=== PATIENT | female | born 1945 | race Caucasian/White ===

== ENCOUNTER 2019-05-23 07:48 | Outpatient (CLI) | payer MEDICARE, SELFPAY ==
--- NOTE | ~2019-05-23 | MR_ITS ---
EXAMINATION: MR brain/brain stem wo/w con EXAM DATE: 05/23/2019 08:58 INDICATION: Cerebellar pilocytic astrocytoma. TECHNIQUE: Magnetic resonance imaging (MRI) of the brain/brain stem obtained without contrast. Sagit juliano T1, axial diffusion, gradient echo (T2*), T1, T2, FLAIR sequences obtained. Patient was then inj ected with 20 cc intravenous Multihance contrast. Axial and coronal postcontrast T1 weighted sequence s obtained. There is no prior study for comparison. FINDINGS: There are surgical changes from right suboccipital craniotomy. There is small amount of rig ht cerebellar encephalomalacia. No evidence of local recurrence. There are no areas of restricted dif fusion to suggest acute infarction. There is no acute hemorrhage seen on the T2*, a hemosiderin sens itive sequence. No intraparenchymal brain mass lesion. There is mild periventricular and subcortical T2/FLAIR signal hyperintensity, nonspecific but probably related to small vessel ischemic disease (m icroangiopathy). There is mild prominence of the sulci and ventricles related to cerebral atrophy. There are no extra-axial collections. Flow voids are seen in the cerebral arteries on the T2-weigh nicole sequences consistent with their expected patency. The orbits are unremarkable. Soft tissue is u nremarkable. There are no areas of abnormal enhancement on the postcontrast images. There is no sig nificant interval change. IMPRESSION: 1. Stable posterior fossa surgical changes. 2. Chronic age related findings. Reviewed, dictated and finalized at location A. [employer] MACHINE OPERATOR
== END 2019-05-23 07:49 | disposition home or self-care (01) ==
DX: C71.6 Malignant neoplasm of cerebellum (principal)
CPT/HCPCS: 70553; A9577

== ENCOUNTER 2019-10-14 12:01 | Outpatient (CLI) | payer MEDICARE, SELFPAY ==
--- NOTE | ~2019-10-14 | MMUS_ITS ---
EXAMINATION: MM diagnostic derrick BI w vj, US breast LT limited HISTORY: Bloody left nipple discharge TECHNIQUE: Craniocaudal, mediolateral, and mediolateral oblique 3-D tomosynthesis images of the breas ts were performed and synthetic 2-D images were generated. CAD analysis was submitted and interpreted . High resolution limited left breast ultrasound was performed. COMPARISON: 09/30/2018, 09/15/2018 BREAST PARENCHYMAL COMPOSITION: There are scattered areas of fibroglandular density. FINDINGS: MAMMOGRAPHIC FINDINGS: Right breast: Scattered benign-appearing calcifications are present. There is no evidence of suspicio us mass, calcification, or architectural distortion to suggest malignancy. There has been no suspici ous interval change. Left breast: There appear to be dilated ducts in the subareolar aspect of the lower, slightly outer b reast. Scattered benign-appearing calcifications are present. No suspicious mass or architectural dis tortion are identified. ULTRASOUND: There is a mildly dilated duct in the subareolar aspect of the slightly lower, slightly outer breast which contains internal debris or a possible mass. IMPRESSION: 1. Dilated duct in the subareolar aspect of the left breast with internal debris or possible mass, herzog ch as a papilloma. 2. Ultrasound-guided biopsy is recommended. BI-RADS category 4, suspicious findings. Reviewed, dictated and finalized at location A. IMPRESSION: 1. Dilated duct in the subareolar aspect of the left breast with internal debri s or possible mass, such as a papilloma. 2. Ultrasound-guided biopsy is recommended. BI-RADS category 4, suspicious findings.
== END 2019-10-14 12:02 | disposition home or self-care (01) ==
LOC: ANHIMG 12:04
DX: N64.52 Nipple discharge (principal)
CPT/HCPCS: 76642; 77062; 77066; G0279

== ENCOUNTER 2020-11-05 08:55 | Outpatient (CLI) | payer MEDICARE, SELFPAY ==
--- NOTE | ~2020-11-05 | MM_ITS ---
EXAMINATION: MM screening derrick BI w vj HISTORY: Screening TECHNIQUE: Craniocaudal and mediolateral oblique 3-D tomosynthesis images were obtained and synthetic 2-D images were generated. CAD analysis was submitted and interpreted. COMPARISON: Comparison to multiple prior studies sequentially, with oldest reviewed study dated 09/15. BREAST PARENCHYMAL COMPOSITION: There are scattered areas of fibroglandular density. FINDINGS: There is no evidence of suspicious mass, calcification, or architectural distortion to sugg est malignancy in either breast. There has been no suspicious interval change. IMPRESSION: 1. No mammographic evidence of malignancy. 2. Recommend routine screening mammography in one year. BI-RADS Category 1: Negative Reviewed, dictated and finalized at location A.
== END 2020-11-05 08:56 | disposition home or self-care (01) ==
LOC: ANHIMG 08:59
DX: Z12.31 Encounter for screening mammogram for malignant neoplasm of breast (principal)
CPT/HCPCS: 77063; 77067